=== PATIENT | female | born 1980 | race Caucasian/White ===

== ENCOUNTER 2016-09-25 07:17 | Day surgery (SDC) | payer OTHER ==
[~2016-09-25 07:17] MED LIST: LIDOCAINE W/ SODIUM BICARB 0.5 ML SYR ONE; Lactated Ringers 1,000 ML PRIMARY IV ONE; ceFAZolin Inj 2gm (Premix) 50 ML IV ONE
[2016-09-25 08:26] VITALS: RESP 20
[2016-09-25] MEDS ORDERED: LIDOCAINE 2% 20 MG/ML - 20 ML VIAL ONE (08:27)
[2016-09-25] MEDS ORDERED: BUPivacaine Inj 0.5% PF (5mg/ml) 10ml vial ONE (08:27)
[2016-09-25] MEDS ORDERED: SODIUM BICARBONATE 8.4% - 50 ML VIAL ONE (08:27)
[2016-09-25] MEDS ORDERED: fentaNYL Inj 100 MCG/2 ML VIAL ONE (08:29)
[2016-09-25] MEDS ORDERED: MIDAZOLAM 5 MG/1 ML ONE (08:29)
[2016-09-25] MEDS ORDERED: NEOMYCIN/BACITRACIN/POLYMYXIN 0.9 GM OINT PACKET TOPICAL ONE ×3 (09:09→11:48)
[2016-09-25] MEDS ORDERED: NORMAL SALINE 10 ML SYRINGE FLUSH IVP PRN (10:26)
[2016-09-25] MEDS ORDERED: oxyCODONE/APAP 7.5/325 Tab 1 TAB TAB PO ONE ×2 (10:32→10:46)
[2016-09-25] MEDS ORDERED: DIAZEPAM 10 MG/2 ML (5 MG/1 ML) CARPUJECT IVP ONE (11:00)
[2016-09-25] MEDS: DIAZEPAM 10 MG/2 ML (5 MG/1 ML) CARPUJECT ONE ×2 (11:04→11:10)
--- NOTE | 2016-09-25 11:04 | GEN.OPNOTE ---
Operative Report Surgeon: Dr. Dio Rogers Anesthesia Type: Local, MAC Anesthesia Provider: Tanya Wells CRNA Surgery Date: 09/25/16 Preoperative Diagnosis: Paronychia with swelling and redness digits 1 through 2 on bilateral feet, history of chronic ingrown toenails and infection. Postoperative Diagnosis: Same Procedure: Phenol and alcohol chemical matrixectomy of first and second digits on bilateral feet Complications: none Description of Procedure: Patient presents with bilateral paronychia's of the first and second digits. Patient was wheeled back to the operating room and placed in the supine position. The foot was prepped scrubbed and draped in the usual aseptic manner. Once this was accomplished the first and second digits on bilateral feet were injected with approximately 2.5 mL of a 1:1 mixture of 0.5% Marcaine and 2% right canine in each toe. The toe tourniquet was then applied to each toe in turn as the procedure was carried out, and then the toe tourniquet was released in turn. The Lt great toe was then exsanguinated with a rubber band. Attention was then directed to the ingrown borders of the toenail spatula was then used to free up the toenail from the nailbed. The ingrown margin of the nail was then removed in toto with a hemostat. The nail matrix then was treated with 30 seconds of phenol treatment 3 times. The phenol was then neutralized with alcohol. A dry sterile dressing was applied to the toe and the tourniquet was released. A dry sterile dressing was applied to the toe. The Lt 2nd toe was then exsanguinated with a rubber band. Attention was then directed to the ingrown borders of the toenail spatula was then used to free up the toenail from the nailbed. The ingrown margin of the nail was then removed in toto with a hemostat. The nail matrix then was treated with 30 seconds of phenol treatment 3 times. The phenol was then neutralized with alcohol. A dry sterile dressing was applied to the toe and the tourniquet was released. A dry sterile dressing was applied to the toe. The Rt great toe was then exsanguinated with a rubber band. Attention was then directed to the ingrown borders of the toenail spatula was then used to free up the toenail from the nailbed. The ingrown margin of the nail was then removed in toto with a hemostat. The nail matrix then was treated with 30 seconds of phenol treatment 3 times. The phenol was then neutralized with alcohol. A dry sterile dressing was applied to the toe and the tourniquet was released. A dry sterile dressing was applied to the toe. The Rt 2nd toe was then exsanguinated with a rubber band. Attention was then directed to the ingrown borders of the toenail spatula was then used to free up the toenail from the nailbed. The ingrown margin of the nail was then removed in toto with a hemostat. The nail matrix then was treated with 30 seconds of phenol treatment 3 times. The phenol was then neutralized with alcohol. A dry sterile dressing was applied to the toe and the tourniquet was released. A dry sterile dressing was applied to the toe. A prompt hyperemic response was noted to all the toes patient tolerated the procedure well following a brief period of postoperative monitoring the patient will be sent home with both written written and oral postoperative instructions and pain medication.
[2016-09-25 13:31] VITALS: TEMP 97.7
== END 2016-09-25 12:49 | disposition home or self-care (01) ==
LOC: SDSC 07:17
PROVIDERS: ATTEND Podiatrist Foot & Ankle Surgery
DX: L60.0 Ingrowing nail (principal); G24.9 Dystonia, unspecified; G40.309 Generalized idiopathic epilepsy and epileptic syndromes, not intractable, without status epilepticus
CPT/HCPCS: 11750 ×4; 84703; J0690; J2704; J3010; J2001; J2250; J3360; J3490; J7120